=== PATIENT | male | born 1960 | race Caucasian/White ===

== ENCOUNTER 2023-08-01 06:36 | Day surgery (SDC) | payer OTHER, SELFPAY ==
[2023-07-22 08:50] LABS: Hematocrit 44.3 % (39.0-52.0); Hemoglobin 15.2 g/dL (13.0-18.0); Mean Corp Hgb Conc. 34.3 g/dL (33.0-37.0); Mean Corpuscular Hgb 32.3 pg (27.0-31.0); Mean Corpuscular Volume 94.3 fL (80.0-94.0); Mean Platelet Volume 9.8 fL (7.4-10.4); Platelet Count 239 10^3/uL (130-400); Red Cell Dist. Width 12.2 % (11.5-14.5); White Blood Cell Count 7.1 10^3/uL (4.8-10.8)
[2023-07-22 13:39] VITALS: BMI 22.4
[2023-08-01] VITALS (11 sets, daily range): BP systolic 104–129; BP diastolic 67–89; BMI 22.4
[2023-08-01] MEDS: NORMOSOL-R 1000 IV (11:04)
[2023-08-01] MEDS: ZOFRAN 4 MG IV (13:38)
== END 2023-08-01 15:40 | disposition home or self-care (01) ==
LOC: SDS 06:36
PROVIDERS: ATTENDING PHYSICIAN Otolaryngology; FAMILY PHYSICIAN Nurse Practitioner Adult Health
DX: J34.2 Deviated nasal septum (principal); J34.3 Hypertrophy of nasal turbinates
CPT/HCPCS: 30520; 30801; 36415; 85027; 93005

== ENCOUNTER 2024-05-28 06:40 | Day surgery (SDC) | payer OTHER, SELFPAY ==
[2024-05-11 12:42] VITALS: BMI 19.6
[2024-05-28] VITALS (9 sets, daily range): BP systolic 104–138; BP diastolic 60–101; BMI 19.6
[2024-05-28] MEDS: TYLENOL 1000 MG PO (10:29)
[2024-05-28] MEDS: NORMOSOL-R/PLASMALYTE-A 1000 IV (10:38)
--- NOTE | 2024-05-28 11:31 | W.SUR.PREOP ---
Pre-Operative Surgical Note
-
I have examined this patient prior to the performance of the scheduled procedure.
The patient's condition is unchanged from the time of the current History and
Physical and the patient is able to undergo the scheduled procedure.
--- NOTE | 2024-05-28 11:31 | HP.FOC2 ---
Focused History & Physical
Chief Complaint
HPI:
Chief Complaint: Left inguinal hernia
HPI / Indication for Planned Procedure:
This is a 64-year-old male with a symptomatic left inguinal hernia, will plan for a robotic repair.
Relevant Past Medical History: Negative
Relevant Social History: Negative
Relevant Family History: Negative
Relevant Past Surgical History: Negative
Review of Systems
Review of Pertinent Systems: All Systems Negative
Medication
See Medication form for detailed medications: Yes
Medication List (including Herbals & OTC):
ascorbic acid (vitamin C) 500 mg tablet (Vitamin C) 500 mg PO DAILY 07/29/23
[id number]-[id number]-wzgeuc tablet (Multivitamin 50 Plus tablet) 1 tab PO DAILY 07/29/23
Medications Reviewed: Yes
Allergies and Reactions
Patient has Allergies: No
Noted Allergies and Reactions:
Allergy/AdvReac Type Severity Reaction Status Date / Time
No Known Allergies Allergy Verified 05/28/24 10:19
Pertinent Physical Exam
All Other Systems: Negative
Head/Neck: Normal
Diagnosis / Assessment
This is a 64-year-old male with a symptomatic left inguinal hernia, will plan for a robotic repair.
Plan / Procedure
This is a 64-year-old male with a symptomatic left inguinal hernia, will plan for a robotic repair. If contralateral hernia is identified intraoperatively, he is okay with fixing this as well.
Anesthesia/Sedation to be done by Anesthesia Provider: Yes
--- NOTE | 2024-05-28 13:28 | W.IMMPOSTOP ---
Surgical Immed Post Op Note
-
Primary Surgeon: Jorge Luis Barakat MD
Assisting Surgeon: None
Pre-op Diagnosis: Left inguinal hernia
Post-op Diagnosis: Same
Procedure Performed: Robotic left inguinal hernia repair with mesh (ARIADNE)
Anesthesia Type: General
Specimen / Cultures: None
Estimated Blood Loss: 1 cc
Complications: None
Operative Findings: Left indirect inguinal hernia. Small femoral component. No direct component. No cord lipoma. Critical view of the MPO was achieved and then reinforced with a large left Bard 3D max uncoated polypropylene mesh.
--- NOTE | 2024-05-28 13:29 | OR.RPT ---
Operative Report
Operative Report
Patient Name: Duong Mccray
: 1960
Date of Operation: 05/28/2024
Preoperative Diagnosis: Reducible Inguinal hernia, left
Postoperative Diagnosis: Same
Procedure(s):
Robotic Inguinal Hernia Repair with mesh, (ARIADNE approach)
Surgeon(s):
Dr. Barakat
Jewelry Sales(s):
LUKE Jean
Anesthesia: General
Estimated Blood Loss: 1 cc
Urine Output: None
Drains/Lines/Implants: Large 3D Max Bard mid weight uncoated polypropylene mesh
Specimens: None
Indication for surgery: The patient has a history of groin pain and noted on exam to have a Left inguinal Hernia(s). Following review of therapeutic options they have elected to undergo a minimally invasive repair.
Operative Findings: Left indirect inguinal hernia. Small femoral component. No direct component. No cord lipoma. Critical view of the MPO was achieved and then reinforced with a large left Bard 3D max uncoated polypropylene mesh. No hernia was
noted on the right.
Details of the operation:
The patient was brought to the Operating Room and placed in the supine position with the arms tucked. IV antibiotics were infused and Venodyne stockings placed. Following uneventful induction of general endotracheal anesthesia, an orogastric tube
were placed. The abdomen was prepped and draped in the usual sterile fashion. The abdomen was entered using a Veress technique which required 1 pass, pneumoperitoneum to 15 mmHg was obtained without difficulty. An 8mm trochar was passed through
the abdominal wall roughly 20 cm cephalad to the inguinal canal. We then confirmed that no inadvertent injury was made while passing the trocar or Veress needle. We then placed two additional 8 mm ports in the left upper and right upper quadrants.
We then docked the robot with a Prograsper in the left hand port and monopolar scissors in the right. No hernia was noted on the right, an obvious left indirect inguinal hernia was identified. We then began by creating a flap at the level of the
ASIS laterally working our way medially to the medial umbilical fold. Staying onto the peritoneum we were able to circumferentially dissect around the hernia sac and and peel it off of the underlying spermatic cord and testicular vessels, taking
care to preserve them. Medially we identified the midline pubis as well as Moose's ligament and ensured to dissect 2 cm below the pubic rim over the bladder. After exposure of the entire myopectineal orifice we identified and reduced: A medium
sized indirect inguinal hernia, no direct inguinal hernia, a small femoral hernia, and no cord lipoma
We then fixated a large 3D max mesh with a 2-0 Vicryl stitch at coopers medially and superior laterally. The flap was then closed with a running 2-0 barbed monocryl suture ensuring that the tail was cut flush with the medial fat pad so that no
barbs were exposed. During the closure of the flap a suction cannula was inserted and 20 cc of quarter percent Marcaine was instilled. The area in the flap cavity was then evacuated of air confirming that the mesh was flush and there were no
folds. All needles and instruments were then removed and the robot was undocked. The abdomen was then desufflated, and pneumoperitoneum evacuated. All skin sites were then closed with 4-0 Monocryl followed by Dermabond. Counts were correct and
overall, the patient tolerated the procedure well and was taken to the Recovery Room postoperatively in stable condition.
I was the attending physician and performed the procedure with assistance of the PA above. The assistance of LUKE Jean was required due to the complexity of the procedure. During the procedure Luna assisted with port placement, instrument and
needle exchanges, and closure of the wound. I was present for all portions of the case, excluding skin closure.
Jorge Luis Barakat MD
[2024-05-28] MEDS: ZOFRAN 4 MG IV (13:30)
[2024-05-28] MEDS: MOTRIN 600 MG PO (14:56)
== END 2024-05-28 16:00 | disposition home or self-care (01) ==
LOC: SDS 06:40
PROVIDERS: ATTENDING PHYSICIAN Surgery; FAMILY PHYSICIAN Nurse Practitioner Adult Health
DX: K40.90 Unilateral inguinal hernia, without obstruction or gangrene, not specified as recurrent (principal); R10.30 Lower abdominal pain, unspecified
CPT/HCPCS: 49650; 36415; 93005; C1781